=== PATIENT | female | born 1965 | race Caucasian/White ===

== ENCOUNTER 2016-05-29 08:27 | Day surgery (SDC) | payer BC ==
[~2016-05-29 08:27] MED LIST: IBUPROFEN800 M1 PO; TYLENOL EXTRA500 M1 PO
[2016-05-30] MEDS ORDERED: PERCOCET 5-3251 EACH PO (01:00)
== END 2016-05-30 11:10 ==
LOC: WSU 08:27 → SHSC 08:31 → ORW 10:22 → PACU 11:34 → OBGF 13:15
PROC: 0UT94ZZ Resection of Uterus, Percutaneous Endoscopic Approach (ICD-10-PCS; principal; 2016-05-29)
PROC: 0UTC4ZZ Resection of Cervix, Percutaneous Endoscopic Approach (ICD-10-PCS; 2016-05-29)
PROC: 0UT24ZZ Resection of Bilateral Ovaries, Percutaneous Endoscopic Approach (ICD-10-PCS; 2016-05-29)
PROC: 0UT74ZZ Resection of Bilateral Fallopian Tubes, Percutaneous Endoscopic Approach (ICD-10-PCS; 2016-05-29)
DX: D25.9 Leiomyoma of uterus, unspecified (principal); N80.0 Endometriosis of uterus; N83.01 Follicular cyst of right ovary; Z79.899 Other long term (current) drug therapy; Z98.890 Other specified postprocedural states; Z88.6 Allergy status to analgesic agent
CPT/HCPCS: J0690; J1170; J3010; J7030